=== PATIENT | male | born 1985 | race African-American/Black ===

== ENCOUNTER 2016-04-14 19:57 | Emergency (ER) | payer OTHER ==
[~2016-04-14] VITALS: Ht 172.7 cm; Wt 90.7 kg
[~2016-04-14 19:57] MED LIST: AUGMENTIN 500-1 EACH PO; DICLOFENAC SODI75 M2 PO
[2016-04-14 20:10] VITALS: BP 159/96
[2016-04-14] MEDS ORDERED: LAMISIL AT30 GM TOP (21:13)
[2016-04-14] MEDS ORDERED: LOTRIMIN AF12 GM TOP (21:13)
--- NOTE | 2016-04-14 21:14 | ED SKIN/ALLERGY COMPLAINT ---
History of Present Illness General Chief Complaint: Skin Rash/ Abcess Stated Complaint: "RASH ON THE BACK OF BOTH LEGS,ITCHY,HOT TO TOUCH" Source: patient Exam Limitations: no limitations Vital Signs & Intake/Output Vital Signs & Intake/Output Vital Signs Date Time Temp Pulse Resp B/P Pulse O2 O2 Flow FiO2 Ox Delivery Rate 04/14 2041 Room Air 04/14 2009 98.1 100 18 159/96 97 Room Air ED Intake and Output 04/15 0000 04/14 1200 Intake Total Output Total Balance Patient 200 lb Weight Allergies Coded Allergies: NO KNOWN ALLERGIES (06/22/15) Reconcile Medications Augmentin (Augmentin 500-125 Tablet) 1 EACH TABLET 1 TAB PO TID infection Clotrimazole (Lotrimin AF) 1 % CREAM..G. 1 RUSTAM TOP BID PRN RASH apply to affected area(s) Diclofenac Sodium 75 MG TABLET.DR 1 TAB PO BID PRN PAIN Terbinafine HCl (Lamisil At) 1 % CREAM..G. 1 RUSTAM TOP BID PRN FUNGAL INFECTION Triage Note: PT TO TRIAGE WITH C/O RASH TO BACK OF BILAT LE, +ITCHINESS/BURNING/HOT TO TOUCH xWEEK. PT AFEBRILE,VSS. DENIES ANY ALLERGIES. Triage Nurses Notes Reviewed? yes Onset: Gradual Duration: getting worse Timing: recent history Severity: moderate Severity Numbers: 5 Location: extremities HPI: Patient is a 30-year-old male with an unremarkable past medical history presents to emergency room if the past week patient has noted a gradual onset of bilateral behind the knee read itchy rash. Patient has been taking ketoconazole topical cream without relief of symptoms Patient has been stating that for the past 2 months he recently started playing PlayStation and has been in a knee bent position often and states he places GAME a lot. Denies any fevers chills skin discharge is otherwise without complaints. (EDIN BORDEN) Past History Travel History Traveled to [place] past 21 day No Medical History Any Pertinent Medical History? none Neurological: NONE EENT: NONE Cardiovascular: NONE Respiratory: NONE Gastrointestinal: NONE Hepatic: NONE Renal: NONE Musculoskeletal: NONE Psychiatric: NONE Endocrine: NONE Blood Disorders: NONE Cancer(s): NONE Surgical History Surgical History: non-contributory Psychosocial History What is your primary language Yi Tobacco Use: Never used Family History Hx Contributory? No (EDIN BORDEN) Review of Systems Review of Systems Constitutional: Reports: no symptoms. EENTM: Reports: no symptoms. Respiratory: Reports: no symptoms. Cardiovascular: Reports: no symptoms. GI: Reports: no symptoms. Genitourinary: Reports: no symptoms. Musculoskeletal: Reports: no symptoms. Skin: Reports: see HPI, rash. Neurological/Psychological: Reports: no symptoms. Hematologic/Endocrine: Reports: no symptoms. Immunologic/Allergic: Reports: no symptoms. All Other Systems: Reviewed and Negative (EDIN BORDEN) Physical Exam Physical Exam General Appearance: no apparent distress, alert Skin: intact Comments: Well-developed well-nourished no apparent distress. HEENT: Atraumatic, extraocular motion intact Neck: Supple, no lymphadenopathy Back: Nontender Respiratory: No respiratory distress Extremities: No edema, full range of motion Neuro: Alert and oriented x3 Psych: Mood affect normal, normal memory normal judgment. Diagram Body: 1) Noted beefy red erythematous rash 2) Noted beefy red erythematous rash (EDIN BORDEN) Progress Differential Diagnosis: abscess/cellulitis, allergic reaction, anaphylaxis, angioedema, contact dermatitis, drug reaction, erythema multiforme, lyme disease , meningitis/sepsis, piyriasis rosea, RMSF, scarlet fever, shingles, syphilis/ gonococcemia, urticaria, FUNGAL INFECTION Plan of Care: Due to history of present illness and exam findings or suspicion of fungal infection to the intertriginous region of patient's popliteal regions of the knee. Patient was strongly advised to keep area dry as possible and was given prescriptions of antifungal medications. There is no concern at this time of bacterial infection cellulitis or abscess (EDIN BORDEN) Departure Departure Disposition: HOME OR SELF CARE Condition: Stable Clinical Impression Primary Impression: Fungal infection Referrals: UNKNOWN (PCP/Family) Additional Instructions: As discussed begin the prescription of LAMISIL cream and Lotrimin cream as directed for your symptoms. Try to keep areas behind THE knee dry as possible especially after showering. If symptoms worsen return to emergency room. Follow-up with your primary care doctor in 1 week if no better. Prescriptions waiting at [facility] pharmacy Departure Forms: Customer Survey General Discharge Information Prescriptions: Current Visit Scripts Terbinafine HCl (Lamisil At) 1 RUSTAM TOP BID PRN FUNGAL INFECTION #1 TUBE Clotrimazole (Lotrimin AF) 1 RUSTAM TOP BID PRN RASH #24 GM apply to affected area(s) (YULI SAENZ,EDIN) PA/STRATEGIC MARKETING SPECIALIST Co-Sign Statement Statement: ED Attending supervision documentation- [] I saw and evaluated the patient. I have also reviewed all the pertinent lab results and diagnostic results. I agree with the findings and the plan of care as documented in the PA's/STRATEGIC MARKETING SPECIALIST's documentation. [x] I have reviewed the ED Record and agree with the PA's/STRATEGIC MARKETING SPECIALIST's documentation. [] Additions or exceptions (if any) to the PAs/STRATEGIC MARKETING SPECIALIST's note and plan are summarized below: [] (CHRISTINE MISTRY,FRANNIE Peralta)
== END 2016-04-14 21:10 ==
LOC: ERH 19:57
DX: B36.9 Superficial mycosis, unspecified (principal)